=== PATIENT | female | born 1950 | race Native Hawaiian/Other Pacific Islander ===

== ENCOUNTER 2019-08-04 15:23 | Outpatient (CLI) | payer OTHER | END 2019-08-04 20:50 | disposition home or self-care (01) | LOC: RAD 15:23 | DX: M51.16 Intervertebral disc disorders with radiculopathy, lumbar region (principal) ==

== ENCOUNTER 2019-10-12 09:28 | Outpatient (CLI) | payer OTHER ==
[2019-10-12 09:51] LABS: PLATELET COUNT 231 K/uL (152-353)
[2019-10-12 10:08] LABS: POTASSIUM 4.1 mmol/L (3.6-5.2)
== END 2019-10-12 20:37 | disposition home or self-care (01) ==
LOC: LABW 09:28
PROVIDERS: Internal Medicine
DX: I10 Essential (primary) hypertension (principal); E11.9 Type 2 diabetes mellitus without complications; H16.223 Keratoconjunctivitis sicca, not specified as Sjogren's, bilateral; K11.7 Disturbances of salivary secretion; M06.4 Inflammatory polyarthropathy; M79.7 Fibromyalgia
CPT/HCPCS: 36415; 80053; 81000; 82784; 83036; 84443; 85027; 85651; 86140

== ENCOUNTER 2019-11-22 10:21 | Outpatient (CLI) | payer OTHER | END 2019-11-22 19:26 | disposition home or self-care (01) | LOC: LABW 10:21 | DX: Z11.59 Encounter for screening for other viral diseases (principal) | CPT/HCPCS: 87635; G2023; U0002 ==

== ENCOUNTER 2020-02-02 14:46 | Outpatient (CLI) | payer OTHER | END 2020-02-02 20:28 | disposition home or self-care (01) | LOC: LAB 14:46 | DX: Z20.828 Contact with and (suspected) exposure to other viral communicable diseases (principal) | CPT/HCPCS: 87635; G2023; U00003 ==

== ENCOUNTER 2020-02-23 12:37 | Outpatient (CLI) | payer OTHER | END 2020-02-23 19:45 | disposition home or self-care (01) | LOC: LAB 12:37 | DX: R50.9 Fever, unspecified (principal) | CPT/HCPCS: 87635; G2023; U0003 ==

== ENCOUNTER 2020-02-29 10:05 | Emergency (ER) | payer OTHER ==
[~2020-02-29] VITALS: Ht 165.1 cm; Wt 90.7 kg
[2020-02-29 11:07] LABS: PLATELET COUNT 198 K/uL (152-353)
[2020-02-29 11:16] LABS: POTASSIUM 3.9 mmol/L (3.6-5.2); SODIUM 139 mmol/L (136-145)
[2020-02-29 14:23] VITALS: BP 157/71; TEMP 98.6
== END 2020-02-29 14:23 | disposition home or self-care (01) ==
LOC: ED 10:05
PROVIDERS: Family Medicine
DX: U07.1 COVID-19 (principal); J06.9 Acute upper respiratory infection, unspecified; R05 Cough; R09.81 Nasal congestion
CPT/HCPCS: 36415; 80053; 81000; 82550; 82728; 83605; 84484; 85027; 85379; 87040; 87502; 87635; 87651; 93005; 99283; U0003

== ENCOUNTER 2020-03-05 10:49 | Inpatient (IN) | payer OTHER ==
[~2020-03-05] VITALS: Ht 165.1 cm; Wt 94.5 kg
[2020-03-05] VITALS (10 sets, daily range): BP systolic 141–1618; BP diastolic 56–101; TEMP 98.1–102.7
[2020-03-05 11:44] LABS: PLATELET COUNT 175 K/uL (152-353)
[2020-03-05 12:18] LABS: POTASSIUM 3.5 mmol/L (3.6-5.2); SODIUM 143 mmol/L (136-145)
[2020-03-06 02:11] VITALS: BP 172/60; TEMP 98.1; Ht 165.1 cm; Wt 94.5 kg
[2020-03-06 04:00] VITALS: BP 147/84; TEMP 98.1
[2020-03-06 06:08] LABS: PLATELET COUNT 167 K/uL (152-353)
[2020-03-06 06:36] LABS: POTASSIUM 3.6 mmol/L (3.6-5.2)
[2020-03-06 08:00] VITALS: BP 153/85; TEMP 97.8
[2020-03-06 12:00] VITALS: BP 193/91; TEMP 97.8
[2020-03-06] MEDS ORDERED: QUINAPRIL HYDRO40 MG PO (18:52)
[2020-03-06] MEDS ORDERED: CARV3.12 PO (18:52)
[2020-03-06] MEDS ORDERED: LEVO-T25 MCG PO (18:54)
[2020-03-06] MEDS ORDERED: PREGABALIN75 MG PO (18:55)
[2020-03-06] MEDS ORDERED: TIZANIDINE HYDRO4 MG PO (18:56)
[2020-03-06] MEDS ORDERED: ALPR0.5T24 PO (18:57)
[2020-03-06] MEDS ORDERED: ALEN70TA19 PO (18:58)
[2020-03-06] MEDS ORDERED: VENLAFAXINE HYD75 M2 PO (18:59)
[2020-03-06] MEDS ORDERED: PEPCID40 MG PO (19:00)
[2020-03-06 20:00] VITALS: BP 158/70; TEMP 98.4
[2020-03-07 00:15] VITALS: BP 119/40; TEMP 98.2
[2020-03-07 04:00] VITALS: BP 129/77; TEMP 98.1
[2020-03-07 08:00] VITALS: BP 179/92; TEMP 97.7
[2020-03-07 08:12] LABS: PLATELET COUNT 193 K/uL (152-353)
[2020-03-07 08:25] LABS: POTASSIUM 3.9 mmol/L (3.6-5.2)
[2020-03-07 12:00] VITALS: BP 145/66; TEMP 98.1
[2020-03-07 16:00] VITALS: BP 151/74; TEMP 97.9
[2020-03-07 20:00] VITALS: BP 105/51; BP 148/78; TEMP 97.7; TEMP 98.4
[2020-03-08] VITALS (7 sets, daily range): BP systolic 141–180; BP diastolic 62–86; TEMP 97.6–98.7
[2020-03-08 04:52] LABS: PLATELET COUNT 200 K/uL (152-353)
[2020-03-08 05:32] LABS: POTASSIUM 3.8 mmol/L (3.6-5.2)
[2020-03-09 03:43] VITALS: BP 161/79; TEMP 98.6
[2020-03-09 05:03] LABS: POTASSIUM 4.1 mmol/L (3.6-5.2)
[2020-03-09 05:27] LABS: PLATELET COUNT 194 K/uL (152-353)
[2020-03-09 08:00] VITALS: BP 170/82; TEMP 98.8
[2020-03-09 12:00] VITALS: BP 179/92; TEMP 98.8
[2020-03-09 16:00] VITALS: BP 184/88; TEMP 98.6
[2020-03-09 20:25] VITALS: BP 195/98; TEMP 99
[2020-03-09 23:50] VITALS: BP 151/76; TEMP 98.7
[2020-03-10 03:41] VITALS: BP 112/48; TEMP 98.1
[2020-03-10 05:53] LABS: POTASSIUM 3.9 mmol/L (3.6-5.2)
[2020-03-10 05:56] LABS: PLATELET COUNT 214 K/uL (152-353)
[2020-03-10 08:00] VITALS: BP 170/82; TEMP 97.2
[2020-03-10 12:00] VITALS: BP 173/85; TEMP 98.7
[2020-03-10] MEDS ORDERED: ALEN70TA19 PO (13:20)
[2020-03-10] MEDS ORDERED: CARV3.12 PO (13:21)
[2020-03-10] MEDS ORDERED: LEVO-T25 MCG PO (13:23)
[2020-03-10] MEDS ORDERED: PEPCID40 MG PO (13:23)
[2020-03-10] MEDS ORDERED: PREGABALIN75 MG PO (13:24)
[2020-03-10] MEDS ORDERED: QUINAPRIL HYDRO40 MG PO (13:25)
[2020-03-10] MEDS ORDERED: TIZANIDINE HYDRO4 MG PO (13:25)
[2020-03-10] MEDS ORDERED: VENLAFAXINE HYD75 M2 PO (13:25)
[2020-03-10] MEDS ORDERED: ASCO500T18 PO (13:26)
[2020-03-10] MEDS ORDERED: CHOL100034 PO (13:26)
[2020-03-10] MEDS ORDERED: ZINC220C4 PO (13:28)
[2020-03-10] MEDS ORDERED: AMLODIPINE BESYLATE PO (13:32)
[2020-03-10] MEDS ORDERED: BUDESONIDE0.5 MG/2 M INH (13:33)
[2020-03-10] MEDS ORDERED: IPRAAER INH (13:34)
[2020-03-10] MEDS ORDERED: LEVEMIR FL100 UNIT/M SC (15:12)
== END 2020-03-10 18:50 | disposition home or self-care (01) | DRG 177 ==
LOC: ED 10:49 → MED/SURG 11:45
PROVIDERS: Internal Medicine Endocrinology, Diabetes & Metabolism; ADMIT Hospitalist
DX: U07.1 COVID-19 (principal); J96.01 Acute respiratory failure with hypoxia; I10 Essential (primary) hypertension; E87.6 Hypokalemia; K21.9 Gastro-esophageal reflux disease without esophagitis; M79.7 Fibromyalgia; E03.8 Other specified hypothyroidism; M81.8 Other osteoporosis without current pathological fracture; F41.8 Other specified anxiety disorders; E11.65 Type 2 diabetes mellitus with hyperglycemia
CPT/HCPCS: 36415; 80053; 82550; 83036; 83605; 83880; 84439; 84443; 84484; 85027; 85610; 85730; 87040; 87077; 87185; 87186; 87205; 93005; 94760; 96360; 96361; 96372; 96375; 99284; J0360; J0456; J1100; J1200; J1650; J1815; J1885; J1956; J2060; J2270; J3490

== ENCOUNTER 2020-09-14 07:46 | Outpatient (CLI) | payer OTHER ==
[~2020-09-14] VITALS: Ht 165.1 cm; Wt 90.3 kg
[~2020-09-14 07:46] MED LIST: ALEN70TA19 PO; ALPR0.5T24 PO; AMLODIPINE BESYLATE PO; ASCO500T18 PO; BUDESONIDE0.5 MG/2 M INH; CARV3.12 PO; CHOL100034 PO; IPRAAER INH; LEVEMIR FL100 UNIT/M SC; LEVO-T25 MCG PO; PEPCID40 MG PO; PREGABALIN75 MG PO; QUINAPRIL HYDRO40 MG PO; TIZANIDINE HYDRO4 MG PO; VENLAFAXINE HYD75 M2 PO; ZINC220C4 PO
== END 2020-09-14 20:02 | disposition home or self-care (01) ==
LOC: DIABINF 07:46
PROVIDERS: ATTEND Internal Medicine Endocrinology, Diabetes & Metabolism
DX: E11.65 Type 2 diabetes mellitus with hyperglycemia (principal); E78.2 Mixed hyperlipidemia; I10 Essential (primary) hypertension; E03.8 Other specified hypothyroidism; K21.9 Gastro-esophageal reflux disease without esophagitis; M79.7 Fibromyalgia; Z68.33 Body mass index [BMI] 33.0-33.9, adult
CPT/HCPCS: 82948; 96365; 96366; 96521; 99204; J1718; J1815

== ENCOUNTER 2020-09-15 07:27 | Outpatient (CLI) | payer OTHER ==
[~2020-09-15] VITALS: Ht 165.1 cm; Wt 90.3 kg
== END 2020-09-15 20:50 | disposition home or self-care (01) ==
LOC: DIABINF 07:27
PROVIDERS: ATTEND Internal Medicine Endocrinology, Diabetes & Metabolism
DX: E11.65 Type 2 diabetes mellitus with hyperglycemia (principal); E78.2 Mixed hyperlipidemia; I10 Essential (primary) hypertension; E03.8 Other specified hypothyroidism; K21.9 Gastro-esophageal reflux disease without esophagitis; M79.7 Fibromyalgia; Z68.33 Body mass index [BMI] 33.0-33.9, adult
CPT/HCPCS: 82948; 96365; 96366; 96521; 99214; J1718; J1815

== ENCOUNTER 2020-09-21 07:25 | Outpatient (CLI) | payer OTHER ==
[~2020-09-21] VITALS: Ht 165.1 cm; Wt 90.3 kg
== END 2020-09-21 21:23 | disposition home or self-care (01) ==
LOC: DIABINF 07:25
PROVIDERS: ATTEND Internal Medicine Endocrinology, Diabetes & Metabolism
DX: E11.65 Type 2 diabetes mellitus with hyperglycemia (principal); E78.2 Mixed hyperlipidemia; I10 Essential (primary) hypertension; E03.8 Other specified hypothyroidism; K21.9 Gastro-esophageal reflux disease without esophagitis; M79.7 Fibromyalgia; Z68.33 Body mass index [BMI] 33.0-33.9, adult
CPT/HCPCS: 82948; 96365; 96366; 96521; 99214; J1718; J1815

== ENCOUNTER 2020-09-22 07:37 | Outpatient (CLI) | payer OTHER ==
[~2020-09-22] VITALS: Ht 165.1 cm; Wt 90.3 kg
== END 2020-09-22 21:09 | disposition home or self-care (01) ==
LOC: DIABINF 07:37
PROVIDERS: ATTEND Internal Medicine Endocrinology, Diabetes & Metabolism
DX: E11.65 Type 2 diabetes mellitus with hyperglycemia (principal); E78.2 Mixed hyperlipidemia; I10 Essential (primary) hypertension; E03.8 Other specified hypothyroidism; K21.9 Gastro-esophageal reflux disease without esophagitis; M79.7 Fibromyalgia; Z68.33 Body mass index [BMI] 33.0-33.9, adult
CPT/HCPCS: 82948; 96365; 96366; 96521; 99214; J1718; J1815

== ENCOUNTER 2020-09-27 12:14 | Outpatient (CLI) | payer OTHER ==
[~2020-09-27] VITALS: Ht 165.1 cm; Wt 90.3 kg
== END 2020-09-27 19:56 | disposition home or self-care (01) ==
LOC: DIABINF 12:14
PROVIDERS: ATTEND Internal Medicine Endocrinology, Diabetes & Metabolism
DX: E11.65 Type 2 diabetes mellitus with hyperglycemia (principal); Z79.4 Long term (current) use of insulin; E78.2 Mixed hyperlipidemia; I10 Essential (primary) hypertension; E03.8 Other specified hypothyroidism; K21.9 Gastro-esophageal reflux disease without esophagitis; M79.7 Fibromyalgia; Z68.33 Body mass index [BMI] 33.0-33.9, adult; E11.36 Type 2 diabetes mellitus with diabetic cataract; E55.9 Vitamin D deficiency, unspecified
CPT/HCPCS: 82948; 96365; 96366; 96521; 99214; J1718; J1815

== ENCOUNTER 2020-09-28 07:26 | Outpatient (CLI) | payer OTHER ==
[~2020-09-28] VITALS: Ht 165.1 cm; Wt 90.3 kg
== END 2020-09-28 21:42 | disposition home or self-care (01) ==
LOC: DIABINF 07:26
PROVIDERS: ATTEND Internal Medicine Endocrinology, Diabetes & Metabolism
DX: E11.65 Type 2 diabetes mellitus with hyperglycemia (principal); Z79.4 Long term (current) use of insulin; E78.2 Mixed hyperlipidemia; I10 Essential (primary) hypertension; E03.8 Other specified hypothyroidism; K21.9 Gastro-esophageal reflux disease without esophagitis; M79.7 Fibromyalgia; Z68.33 Body mass index [BMI] 33.0-33.9, adult; E55.9 Vitamin D deficiency, unspecified
CPT/HCPCS: 82948; 96365; 96366; 96521; 99214; J1718; J1815

== ENCOUNTER 2020-10-06 07:33 | Outpatient (CLI) | payer OTHER ==
[~2020-10-06] VITALS: Ht 165.1 cm; Wt 90.3 kg
== END 2020-10-06 19:07 | disposition home or self-care (01) ==
LOC: DIABINF 07:33
PROVIDERS: ATTEND Internal Medicine Endocrinology, Diabetes & Metabolism
DX: E11.65 Type 2 diabetes mellitus with hyperglycemia (principal); E78.2 Mixed hyperlipidemia; I10 Essential (primary) hypertension; E03.8 Other specified hypothyroidism; K21.9 Gastro-esophageal reflux disease without esophagitis; M79.7 Fibromyalgia; Z68.33 Body mass index [BMI] 33.0-33.9, adult
CPT/HCPCS: 82948; 96365; 96366; 96521; 99214; J1718; J1815

== ENCOUNTER 2020-10-12 07:38 | Outpatient (CLI) | payer OTHER ==
[~2020-10-12] VITALS: Ht 165.1 cm; Wt 90.3 kg
== END 2020-10-12 19:28 | disposition home or self-care (01) ==
LOC: DIABINF 07:38
PROVIDERS: ATTEND Internal Medicine Endocrinology, Diabetes & Metabolism
DX: E11.65 Type 2 diabetes mellitus with hyperglycemia (principal); E78.2 Mixed hyperlipidemia; I10 Essential (primary) hypertension; E03.8 Other specified hypothyroidism; K21.9 Gastro-esophageal reflux disease without esophagitis; M79.7 Fibromyalgia; Z68.33 Body mass index [BMI] 33.0-33.9, adult
CPT/HCPCS: 82948; 96365; 96366; 96521; 99214; J1815; J2405

== ENCOUNTER 2020-10-19 07:27 | Outpatient (CLI) | payer OTHER ==
[~2020-10-19] VITALS: Ht 165.1 cm; Wt 90.3 kg
== END 2020-10-19 20:17 | disposition home or self-care (01) ==
LOC: DIABINF 07:27
PROVIDERS: ATTEND Internal Medicine Endocrinology, Diabetes & Metabolism
DX: E11.65 Type 2 diabetes mellitus with hyperglycemia (principal); E78.2 Mixed hyperlipidemia; I10 Essential (primary) hypertension; E03.8 Other specified hypothyroidism; K21.9 Gastro-esophageal reflux disease without esophagitis; M79.7 Fibromyalgia; Z68.33 Body mass index [BMI] 33.0-33.9, adult
CPT/HCPCS: 82948; 96365; 96366; 96521; 99214; J1718; J1815

== ENCOUNTER 2020-10-26 07:30 | Outpatient (CLI) | payer OTHER ==
[~2020-10-26] VITALS: Ht 165.1 cm; Wt 90.3 kg
== END 2020-10-26 22:09 | disposition home or self-care (01) ==
LOC: DIABINF 07:30
PROVIDERS: ATTEND Internal Medicine Endocrinology, Diabetes & Metabolism
DX: E11.65 Type 2 diabetes mellitus with hyperglycemia (principal); E78.2 Mixed hyperlipidemia; I10 Essential (primary) hypertension; E03.8 Other specified hypothyroidism; K21.9 Gastro-esophageal reflux disease without esophagitis; M79.7 Fibromyalgia; Z68.33 Body mass index [BMI] 33.0-33.9, adult
CPT/HCPCS: 82948; 96365; 96366; 96521; 99214; J1718; J1815

== ENCOUNTER 2020-11-02 07:40 | Outpatient (CLI) | payer OTHER ==
[~2020-11-02] VITALS: Ht 165.1 cm; Wt 81.2 kg
== END 2020-11-02 20:50 | disposition home or self-care (01) ==
LOC: DIABINF 07:40
PROVIDERS: ATTEND Internal Medicine Endocrinology, Diabetes & Metabolism
DX: E11.65 Type 2 diabetes mellitus with hyperglycemia (principal); E78.2 Mixed hyperlipidemia; I10 Essential (primary) hypertension; E03.8 Other specified hypothyroidism; K21.9 Gastro-esophageal reflux disease without esophagitis; M79.7 Fibromyalgia; Z68.33 Body mass index [BMI] 33.0-33.9, adult
CPT/HCPCS: 82948; 96365; 96366; 96521; 99214; J1718; J1815

== ENCOUNTER 2020-11-16 07:38 | Outpatient (CLI) | payer OTHER ==
[~2020-11-16] VITALS: Ht 170.2 cm; Wt 90.3 kg
== END 2020-11-16 19:19 | disposition home or self-care (01) ==
LOC: DIABINF 07:38
PROVIDERS: ATTEND Nurse Practitioner
DX: E11.65 Type 2 diabetes mellitus with hyperglycemia (principal); E78.2 Mixed hyperlipidemia; I10 Essential (primary) hypertension; E03.8 Other specified hypothyroidism; K21.9 Gastro-esophageal reflux disease without esophagitis; M79.7 Fibromyalgia; Z68.33 Body mass index [BMI] 33.0-33.9, adult; F41.1 Generalized anxiety disorder; F33.9 Major depressive disorder, recurrent, unspecified
CPT/HCPCS: 82948; 96365; 96366; 96521; 99214; J1718; J1815

== ENCOUNTER 2020-11-23 07:44 | Outpatient (CLI) | payer OTHER ==
[~2020-11-23] VITALS: Ht 165.1 cm; Wt 90.3 kg
== END 2020-11-23 20:22 | disposition home or self-care (01) ==
LOC: DIABINF 07:44
PROVIDERS: ATTEND Nurse Practitioner
DX: E11.65 Type 2 diabetes mellitus with hyperglycemia (principal); E78.2 Mixed hyperlipidemia; I10 Essential (primary) hypertension; E03.8 Other specified hypothyroidism; K21.9 Gastro-esophageal reflux disease without esophagitis; M79.7 Fibromyalgia; Z68.33 Body mass index [BMI] 33.0-33.9, adult; F41.1 Generalized anxiety disorder; F33.9 Major depressive disorder, recurrent, unspecified
CPT/HCPCS: 82948; 96365; 96366; 96521; J1815; J1817

== ENCOUNTER 2020-11-30 07:42 | Outpatient (CLI) | payer OTHER ==
[2020-11-30 08:18] LABS: PLATELET COUNT 239 K/uL (152-353)
[2020-11-30 08:45] LABS: POTASSIUM 4.8 mmol/L (3.6-5.2)
== END 2020-11-30 23:13 | disposition home or self-care (01) ==
LOC: LABW 07:42
PROVIDERS: ATTEND Nurse Practitioner
DX: E88.81 Metabolic syndrome and other insulin resistance (principal); I25.10 Atherosclerotic heart disease of native coronary artery without angina pectoris; I10 Essential (primary) hypertension; E55.9 Vitamin D deficiency, unspecified; H16.223 Keratoconjunctivitis sicca, not specified as Sjogren's, bilateral; M79.7 Fibromyalgia; M85.89 Other specified disorders of bone density and structure, multiple sites; Z79.899 Other long term (current) drug therapy
CPT/HCPCS: 80053; 80061; 82306; 82784; 83036; 85027; 85652; 86140

== ENCOUNTER 2020-11-30 07:45 | Outpatient (CLI) | payer OTHER ==
[~2020-11-30] VITALS: Ht 165.1 cm; Wt 90.3 kg
== END 2020-11-30 23:13 | disposition home or self-care (01) ==
LOC: DIABINF 07:45
PROVIDERS: ATTEND Internal Medicine Endocrinology, Diabetes & Metabolism
DX: E11.65 Type 2 diabetes mellitus with hyperglycemia (principal); E78.2 Mixed hyperlipidemia; I10 Essential (primary) hypertension; E03.8 Other specified hypothyroidism; K21.9 Gastro-esophageal reflux disease without esophagitis; M79.7 Fibromyalgia; Z68.33 Body mass index [BMI] 33.0-33.9, adult; F41.1 Generalized anxiety disorder; F33.9 Major depressive disorder, recurrent, unspecified
CPT/HCPCS: 82948; 96365; 96366; 96521; J1815; J1817

== ENCOUNTER 2020-12-07 12:15 | Outpatient (CLI) | payer OTHER ==
[~2020-12-07] VITALS: Ht 165.1 cm; Wt 90.3 kg
== END 2020-12-07 22:27 | disposition home or self-care (01) ==
LOC: DIABINF 12:15
PROVIDERS: ATTEND Internal Medicine Endocrinology, Diabetes & Metabolism
DX: E11.65 Type 2 diabetes mellitus with hyperglycemia (principal); E78.2 Mixed hyperlipidemia; I10 Essential (primary) hypertension; E03.8 Other specified hypothyroidism; K21.9 Gastro-esophageal reflux disease without esophagitis; M79.7 Fibromyalgia; Z68.33 Body mass index [BMI] 33.0-33.9, adult; F41.1 Generalized anxiety disorder; F33.0 Major depressive disorder, recurrent, mild
CPT/HCPCS: 82948; 96365; 96366; 96521; J1815; J1817

== ENCOUNTER 2020-12-14 07:36 | Outpatient (CLI) | payer OTHER ==
[~2020-12-14] VITALS: Ht 165.1 cm; Wt 93.4 kg
== END 2020-12-14 19:11 | disposition home or self-care (01) ==
LOC: DIABINF 07:36
PROVIDERS: ATTEND Internal Medicine Endocrinology, Diabetes & Metabolism
DX: E11.65 Type 2 diabetes mellitus with hyperglycemia (principal); E78.2 Mixed hyperlipidemia; I10 Essential (primary) hypertension; E03.8 Other specified hypothyroidism; K21.9 Gastro-esophageal reflux disease without esophagitis; M79.7 Fibromyalgia; Z68.33 Body mass index [BMI] 33.0-33.9, adult; F41.1 Generalized anxiety disorder; F33.0 Major depressive disorder, recurrent, mild
CPT/HCPCS: 82948; 96365; 96366; 96521; J1815; J1817

== ENCOUNTER 2020-12-21 07:23 | Outpatient (CLI) | payer OTHER ==
[~2020-12-21] VITALS: Ht 165.1 cm; Wt 93.4 kg
== END 2020-12-21 22:42 | disposition home or self-care (01) ==
LOC: DIABINF 07:23
PROVIDERS: ATTEND Internal Medicine Endocrinology, Diabetes & Metabolism
DX: E11.65 Type 2 diabetes mellitus with hyperglycemia (principal); E78.2 Mixed hyperlipidemia; I10 Essential (primary) hypertension; E03.8 Other specified hypothyroidism; K21.9 Gastro-esophageal reflux disease without esophagitis; M79.7 Fibromyalgia; Z68.33 Body mass index [BMI] 33.0-33.9, adult; F41.1 Generalized anxiety disorder; F33.0 Major depressive disorder, recurrent, mild
CPT/HCPCS: 82948; 96365; 96366; 96521; J1815; J1817

== ENCOUNTER 2020-12-28 07:32 | Outpatient (CLI) | payer OTHER ==
[~2020-12-28] VITALS: Ht 165.1 cm; Wt 93.4 kg
== END 2020-12-28 22:38 | disposition home or self-care (01) ==
LOC: DIABINF 07:32
PROVIDERS: ATTEND Internal Medicine Endocrinology, Diabetes & Metabolism
DX: E11.65 Type 2 diabetes mellitus with hyperglycemia (principal); E78.2 Mixed hyperlipidemia; I10 Essential (primary) hypertension; E03.8 Other specified hypothyroidism; K21.9 Gastro-esophageal reflux disease without esophagitis; M79.7 Fibromyalgia; Z68.33 Body mass index [BMI] 33.0-33.9, adult; F41.1 Generalized anxiety disorder; F33.0 Major depressive disorder, recurrent, mild
CPT/HCPCS: 82948; 96365; 96366; 96521; J1815; J1817

== ENCOUNTER 2021-01-04 07:35 | Outpatient (CLI) | payer OTHER ==
[~2021-01-04] VITALS: Ht 165.1 cm; Wt 93.4 kg
== END 2021-01-04 11:30 | disposition home or self-care (01) ==
LOC: DIABINF 07:35
PROVIDERS: ATTEND Internal Medicine Endocrinology, Diabetes & Metabolism
DX: E11.65 Type 2 diabetes mellitus with hyperglycemia (principal); M79.7 Fibromyalgia; E78.2 Mixed hyperlipidemia; I10 Essential (primary) hypertension; E03.8 Other specified hypothyroidism; K21.9 Gastro-esophageal reflux disease without esophagitis; E66.8 Other obesity; Z68.33 Body mass index [BMI] 33.0-33.9, adult
CPT/HCPCS: 82948; 96365; 96366; 96521; J1815; J1817

== ENCOUNTER 2021-01-11 07:31 | Outpatient (CLI) | payer OTHER ==
[~2021-01-11] VITALS: Ht 165.1 cm; Wt 93.4 kg
== END 2021-01-11 11:30 | disposition home or self-care (01) ==
LOC: DIABINF 07:31
PROVIDERS: ATTEND Nurse Practitioner
DX: E11.65 Type 2 diabetes mellitus with hyperglycemia (principal); M79.7 Fibromyalgia; E78.2 Mixed hyperlipidemia; I10 Essential (primary) hypertension; E03.8 Other specified hypothyroidism; K21.9 Gastro-esophageal reflux disease without esophagitis; E66.8 Other obesity; Z68.33 Body mass index [BMI] 33.0-33.9, adult
CPT/HCPCS: 82948; 96365; 96366; 96521; J1815; J1817

== ENCOUNTER 2021-01-18 07:38 | Outpatient (CLI) | payer OTHER ==
[~2021-01-18] VITALS: Ht 165.1 cm; Wt 93.4 kg
== END 2021-01-18 11:30 | disposition home or self-care (01) ==
LOC: DIABINF 07:38
PROVIDERS: ATTEND Internal Medicine Endocrinology, Diabetes & Metabolism
DX: E11.65 Type 2 diabetes mellitus with hyperglycemia (principal); E78.2 Mixed hyperlipidemia; I10 Essential (primary) hypertension; E03.8 Other specified hypothyroidism; K21.9 Gastro-esophageal reflux disease without esophagitis; M79.7 Fibromyalgia; Z68.33 Body mass index [BMI] 33.0-33.9, adult; F41.1 Generalized anxiety disorder; F33.0 Major depressive disorder, recurrent, mild
CPT/HCPCS: 82948; 96365; 96366; 96521; J1815; J1817

== ENCOUNTER 2021-01-25 07:43 | Outpatient (CLI) | payer OTHER ==
[~2021-01-25] VITALS: Ht 165.1 cm; Wt 93.4 kg
== END 2021-01-25 19:41 | disposition home or self-care (01) ==
LOC: DIABINF 07:43
PROVIDERS: ATTEND Nurse Practitioner
DX: E11.65 Type 2 diabetes mellitus with hyperglycemia (principal); I10 Essential (primary) hypertension; E03.8 Other specified hypothyroidism; K21.9 Gastro-esophageal reflux disease without esophagitis; M79.7 Fibromyalgia; F41.1 Generalized anxiety disorder; F33.0 Major depressive disorder, recurrent, mild
CPT/HCPCS: 82948; 96365; 96366; 96521; J1815; J1817

== ENCOUNTER 2021-02-08 07:39 | Outpatient (CLI) | payer OTHER ==
[~2021-02-08] VITALS: Ht 165.1 cm; Wt 93.4 kg
== END 2021-02-08 20:58 | disposition home or self-care (01) ==
LOC: DIABINF 07:39
PROVIDERS: ATTEND Nurse Practitioner
DX: E11.65 Type 2 diabetes mellitus with hyperglycemia (principal); I10 Essential (primary) hypertension; E03.8 Other specified hypothyroidism; K21.9 Gastro-esophageal reflux disease without esophagitis; M79.7 Fibromyalgia
CPT/HCPCS: 82948; 96365; 96366; 96521; J1815; J1817

== ENCOUNTER 2021-02-15 07:42 | Outpatient (CLI) | payer OTHER ==
[~2021-02-15] VITALS: Ht 165.1 cm; Wt 93.4 kg
== END 2021-02-15 22:01 | disposition home or self-care (01) ==
LOC: DIABINF 07:42
PROVIDERS: ATTEND Nurse Practitioner
DX: E11.65 Type 2 diabetes mellitus with hyperglycemia (principal); E03.8 Other specified hypothyroidism; M79.7 Fibromyalgia; I10 Essential (primary) hypertension; E78.2 Mixed hyperlipidemia; K21.9 Gastro-esophageal reflux disease without esophagitis; M06.9 Rheumatoid arthritis, unspecified
CPT/HCPCS: 82948; 96365; 96366; 96521; J1815; J1817

== ENCOUNTER 2021-02-22 07:41 | Outpatient (CLI) | payer OTHER ==
[~2021-02-22] VITALS: Ht 165.1 cm; Wt 93.4 kg
== END 2021-02-22 20:17 | disposition home or self-care (01) ==
LOC: DIABINF 07:41
PROVIDERS: ATTEND Nurse Practitioner
DX: E11.65 Type 2 diabetes mellitus with hyperglycemia (principal); E03.8 Other specified hypothyroidism; M79.7 Fibromyalgia; I10 Essential (primary) hypertension; E78.2 Mixed hyperlipidemia; K21.9 Gastro-esophageal reflux disease without esophagitis
CPT/HCPCS: 82948; 96365; 96366; 96521; J1815; J1817

== ENCOUNTER 2021-03-01 07:43 | Outpatient (CLI) | payer OTHER ==
[~2021-03-01] VITALS: Ht 165.1 cm; Wt 93.4 kg
== END 2021-03-01 22:32 | disposition home or self-care (01) ==
LOC: DIABINF 07:43
PROVIDERS: ATTEND Nurse Practitioner
DX: E11.65 Type 2 diabetes mellitus with hyperglycemia (principal); E03.8 Other specified hypothyroidism; M79.7 Fibromyalgia; I10 Essential (primary) hypertension; E78.2 Mixed hyperlipidemia; K21.9 Gastro-esophageal reflux disease without esophagitis; G56.02 Carpal tunnel syndrome, left upper limb
CPT/HCPCS: 82948; 96365; 96366; 96521; J1815; J1817

== ENCOUNTER 2021-03-08 07:36 | Outpatient (CLI) | payer OTHER ==
[~2021-03-08] VITALS: Ht 165.1 cm; Wt 93.4 kg
== END 2021-03-08 19:32 | disposition home or self-care (01) ==
LOC: DIABINF 07:36
PROVIDERS: ATTEND Nurse Practitioner Family
DX: E11.65 Type 2 diabetes mellitus with hyperglycemia (principal); E03.8 Other specified hypothyroidism; M79.7 Fibromyalgia; I10 Essential (primary) hypertension; E78.2 Mixed hyperlipidemia; K21.9 Gastro-esophageal reflux disease without esophagitis; G56.02 Carpal tunnel syndrome, left upper limb
CPT/HCPCS: 82948; 96365; 96366; 96521; J1815; J1817

== ENCOUNTER 2021-03-15 07:31 | Outpatient (CLI) | payer OTHER ==
[~2021-03-15] VITALS: Ht 170.2 cm; Wt 90.3 kg
== END 2021-03-15 20:02 | disposition home or self-care (01) ==
LOC: DIABINF 07:31
PROVIDERS: ATTEND Nurse Practitioner Family
DX: E11.65 Type 2 diabetes mellitus with hyperglycemia (principal); E03.8 Other specified hypothyroidism; M79.7 Fibromyalgia; I10 Essential (primary) hypertension; E78.2 Mixed hyperlipidemia; K21.9 Gastro-esophageal reflux disease without esophagitis; G56.02 Carpal tunnel syndrome, left upper limb
CPT/HCPCS: 82948; 96365; 96366; 96521; J1815; J1817

== ENCOUNTER 2021-03-22 07:37 | Outpatient (CLI) | payer OTHER ==
[~2021-03-22] VITALS: Ht 165.1 cm; Wt 93.4 kg
== END 2021-03-22 21:21 | disposition home or self-care (01) ==
LOC: DIABINF 07:37
PROVIDERS: ATTEND Nurse Practitioner
DX: E11.65 Type 2 diabetes mellitus with hyperglycemia (principal); E03.8 Other specified hypothyroidism; M79.7 Fibromyalgia; I10 Essential (primary) hypertension; E78.2 Mixed hyperlipidemia; K21.9 Gastro-esophageal reflux disease without esophagitis; G56.02 Carpal tunnel syndrome, left upper limb
CPT/HCPCS: 82948; 96365; 96366; 96521; J1815; J1817

== ENCOUNTER 2021-05-16 07:41 | Outpatient (CLI) | payer OTHER ==
[2021-05-16 08:46] LABS: PLATELET COUNT 213 K/uL (152-353)
[2021-05-16 08:48] LABS: POTASSIUM 4.2 mmol/L (3.6-5.2)
== END 2021-05-16 19:13 | disposition home or self-care (01) ==
LOC: LABW 07:41
PROVIDERS: ATTEND Nurse Practitioner Family
DX: E55.9 Vitamin D deficiency, unspecified (principal); H16.223 Keratoconjunctivitis sicca, not specified as Sjogren's, bilateral; M85.89 Other specified disorders of bone density and structure, multiple sites; E03.8 Other specified hypothyroidism; E11.9 Type 2 diabetes mellitus without complications; E78.2 Mixed hyperlipidemia
CPT/HCPCS: 36415; 80053; 80061; 81000; 82043; 82306; 83036; 83970; 84439; 84443; 85027; 85652; 86140